=== PATIENT | female | born 1960 | race Hispanic/Latino ===

== ENCOUNTER → 2022-03-09 | Outpatient (CLI) | payer MEDICARE ==
[~2022-03-09] MED LIST: ALBUTEROL; ALBUTEROL NEB; ALBUTEROL SULF8.5 GM INH; ALLOPURINOL300 MG PO; ASPIR 8181 MG PO; BENTYL PO; BENTYL10 MG PO; CARAFATE1 GM PO; DEXILANT60 MG PO; FOLIC ACID PO; FOLIC ACID1 MG PO; GABAPENTIN300 MG PO; LEVOFLOXACIN500 MG PO; LEVOTHYROXINE175 MCG PO; LIDOCAINE1 EA TOP; LORAZEPAM; LORAZEPAM0.5 MG PO; METHOTREXATE INJ; METHOTREXATE2.5 MG PO; NAPROXEN375 MG PO; OMEPRAZOLE20 MG PO; OXYCODONE-ACET1 EAC3 PO; PLAQUENIL200 MG PO; PREDNISONE10 MG PO; PREDNISONE5 MG PO; TIZANIDINE HCL2 MG PO; TOPAMAX25 MG PO; TYLENOL # 31 EA PO; TYLENOL WITH C1 EACH PO; ULTRAM 50MG50 MG PO
== END ==
LOC: DX 11:57
PROVIDERS: ATTEND Internal Medicine Endocrinology, Diabetes & Metabolism
DX: R49.0 Dysphonia (principal)
CPT/HCPCS: 74246; 74250